=== PATIENT | male | born 1950 | race Caucasian/White ===

== ENCOUNTER 2017-09-07 14:06 | Emergency (ER) | payer BC, OTHER ==
--- NOTE | 2017-09-07 14:44 | EDM.PDOC ---
ED HPI GENERAL MEDICAL PROBLEM - General Chief Complaint: Lower Extremity Injury/Pain Stated Complaint: FELL OFF FIRETRUCK Time Seen by Provider: 09/07/17 14:30 Source of Information: Reports: Patient, Family History Limitations: Reports: No Limitations - History of Present Illness INITIAL COMMENTS - FREE TEXT/NARRATIVE: 67-year-old male fell about 5 feet off of a truck onto his left side onto concrete. This happened about 3 hours ago, he has pain in his left lateral hip with swelling developing, some pain in his left wrist and a small amount of soreness in his chest. No shortness of breath, no head injury, neck pain, abdominal pain. Onset: Sudden Duration: Hour(s): (3 hours ago) Location: Reports: Upper Extremity, Left, Lower Extremity, Left Severity: Moderate Associated Symptoms: Reports: No Other Symptoms Left Hip Pain Score (Numeric/FACES): 7 - Related Data Allergies Allergy/AdvReac Type Severity Reaction Status Date / Time ibuprofen [From Advil] Allergy Hives Verified 09/07/17 15:08 ED ROS GENERAL - Review of Systems Review Of Systems: See Below Constitutional: Denies: Fever, Chills Respiratory: Reports: Pleuritic Chest Pain. Denies: Shortness of Breath GI/Abdominal: Denies: Abdominal Pain, Nausea, Vomiting Musculoskeletal: Reports: Arm Pain, Leg Pain Skin: Denies: Bruising Neurological: Denies: Headache Psychiatric: Reports: No Symptoms ED EXAM, GENERAL - Physical Exam Exam: See Below Exam Limited By: No Limitations General Appearance: Alert, No Apparent Distress (Walks very gingerly but relatively pain-free when lying still) Eye Exam: Bilateral Eye: EOMI Head: Atraumatic Neck: Normal Inspection Respiratory/Chest: No Respiratory Distress, Lungs Clear, Other (Patient has a small amount of discomfort when palpating the anterior chest, no significant tenderness or crepitus) Cardiovascular: Regular Rate, Rhythm GI/Abdominal: Soft, Non-Tender Extremities: Other (Tenderness to the medial aspect of the left wrist with a small amount of swelling, no deformity. Patient has significant swelling and tightness developing on the posterior left buttock at the lateral left hip, very tender to palpation) Course - Vital Signs Last Recorded V/S: Last Vital Signs Temp 101.7 F H 09/07/17 17:25 Pulse 81 09/07/17 17:25 Resp 16 12/31/17 17:25 BP 142/69 H 09/07/17 17:25 Pulse Ox 96 09/07/17 17:25 - Orders/Labs/Meds Orders: Active Orders 24 hr Category Date Time Status Pelvis wo Cont [CT] Stat Exams 09/07/17 14:40 Taken Wrist Comp Min 3V Lt [CR] Stat Exams 09/07/17 14:40 Taken - Re-Assessments/Exams Free Text/Narrative Re-Assessment/Exam: 09/07/17 14:44 An x-ray of the left wrist was ordered as well as a CT of the pelvis without contrast. 09/07/17 16:43 Left wrist x-ray was negative, CT of the pelvis showed the soft tissue injury but no fracture. Patient was supplied with 20 Vicodin for extra pain control and encouraged to increase activity as tolerated. Departure - Departure Time of Disposition: 17:34 Disposition: Home, Self-Care 01 Condition: Fair Clinical Impression: Traumatic hematoma of buttock Qualifiers: Encounter type: initial encounter Qualified Code(s): S30.0XXA - Contusion of lower back and pelvis, initial encounter Contusion of wrist, left Qualifiers: Encounter type: initial encounter Qualified Code(s): S60.212A - Contusion of left wrist, initial encounter - Discharge Information Instructions: Hematoma, [id number] Referrals: PCP,None [Primary Care Provider] - Forms: ED Department Discharge Care Plan Goals: Ice to swollen and sore areas for the next 48 hours would be helpful. A regular dose of anti-inflammatory such as ibuprofen or naproxen would also be helpful, along with stronger pain medications as prescribed if needed. Increase activity as tolerated and recheck next week if concerns of not healing satisfactorily. - My Orders Last 24 Hours: My Active Orders 09/07/17 14:40 Pelvis wo Cont [CT] Stat Wrist Comp Min 3V Lt [CR] Stat - Assessment/Plan Last 24 Hours: My Active Orders 09/07/17 14:40 Pelvis wo Cont [CT] Stat Wrist Comp Min 3V Lt [CR] Stat
--- NOTE | 2017-09-09 09:18 | CR ---
Wrist Comp Min 3V Lt INDICATION: fall, injury COMPARISON: 04/16/2013 FINDINGS: 3 views. No fracture, dislocation, or other acute bony abnormality. Old dorsal triquetra l chip fracture. Degenerative change, slightly progressed.
== END 2017-09-07 17:35 | disposition home or self-care (01) ==
LOC: JP.ED 14:06
DX: S30.0XXA Contusion of lower back and pelvis, initial encounter (principal); S60.212A Contusion of left wrist, initial encounter; Z88.6 Allergy status to analgesic agent; W17.89XA Other fall from one level to another, initial encounter
CPT/HCPCS: 72192; 73110-26-LT; 73110-LT; 99284-25

== ENCOUNTER 2019-06-23 02:28 | Emergency (ER) | payer MEDICARE, BC ==
[2019-06-23] MEDS ORDERED: Tranexamic Acid 1,000 MG in Sodium Chloride 0.9% 50 ML IV ONE (03:21)
[2019-06-23] MEDS: Gelatin Sponge,Absorbable 12-7 mm Sponge TOP ONE (03:56)
--- NOTE | 2019-06-23 04:18 | EDM.PDOC ---
ED HPI GENERAL MEDICAL PROBLEM - General Chief Complaint: ENT Problem Stated Complaint: TOOTH BLEED Time Seen by Provider: 06/23/19 02:50 Source of Information: Reports: Patient History Limitations: Reports: No Limitations - History of Present Illness INITIAL COMMENTS - FREE TEXT/NARRATIVE: This man had a dental extraction 2 days ago, a left upper molar. It has been oozing ever since. He was told to put a tea bag on it but it hasn't helped. He is on coumadin for afib. a recent INR was 2.9. - Related Data Allergies Allergy/AdvReac Type Severity Reaction Status Date / Time glipizide Allergy Weakness Verified 06/23/19 02:31 ibuprofen [From Advil] Allergy Hives Verified 07/03/18 23:31 Home Meds: Home Meds Acetaminophen [Acetaminophen Extra Strength] 1,000 mg PO BEDTIME PRN 07/03/18 [ History] Chlorthalidone 1 tab PO DAILY 07/03/18 [History] Chromium Picolinate 400 mcg PO BEDTIME 07/03/18 [History] Garlic 500 mg PO BID 07/03/18 [History] Gluc 2KCl/Chondr/Manpreet Hy/Hy Ac [Glucosamine & Chondroitin Cap] 1 each PO BID [History] Lisinopril 1 tab PO DAILY 07/03/18 [History] Metoprolol Succinate [Toprol XL 50mg] 50 mg PO BEDTIME 07/03/18 [History] Multivitamin [Men's Multi-Vitamin] 1 each PO DAILY 07/03/18 [History] [place]-3 Fatty Acids/Fish Oil [Fish Oil 1,000 mg Softgel] 1 each PO BID 07/03/18 [History] atorvaSTATin [Lipitor] 20 mg PO BEDTIME 07/03/18 [History] Aspirin [Adult Low Dose Aspirin EC] 81 mg PO DAILY 06/23/19 [History] Warfarin Sodium 5 mg PO ASDIRECTED 06/23/19 [History] Warfarin Sodium 7.5 mg PO ASDIRECTED 06/23/19 [History] glyBURIDE [Micronase] 2.5 mg PO DAILY 06/23/19 [History] metFORMIN [Glucophage XR] 1,000 mg PO DAILY 06/23/19 [History] Past Medical History HEENT History: Reports: Impaired Vision Cardiovascular History: Reports: Afib, CAD, High Cholesterol, Hypertension, DC, Stents Other Genitourinary History: VASECTOMY Musculoskeletal History: Reports: Fracture Endocrine/Metabolic History: Reports: Diabetes, Type II - Infectious Disease History Infectious Disease History: Reports: Chicken Pox, Measles, Mumps - Past Surgical History Cardiovascular Surgical History: Reports: Coronary Artery Stent Male Surgical History: Reports: Vasectomy Other Musculoskeletal Surgeries/Procedures:: R ANKLE REPAIR with plate and pins Social & Family History - Tobacco Use Smoking Status *Q: Never Smoker Second Hand Smoke Exposure: No - Caffeine Use Caffeine Use: Reports: Coffee - Alcohol Use Days Per Week of Alcohol Use: 1 Number of Drinks Per Day: 1 Total Drinks Per Week: 1 - Recreational Drug Use Recreational Drug Use: No ED ROS ENT - Review of Systems Review Of Systems: ROS reveals no pertinent complaints other than HPI. ED EXAM, ENT - Physical Exam Exam: See Below Exam Limited By: No Limitations General Appearance: Alert, WD/WN, Mild Distress (spitting out small amounts of bloody saliva frequently.) Mouth/Throat: Other (recent extraction of left upper molar. Actively oozing blood.) Course - Vital Signs Last Recorded V/S: Last Vital Signs Temp 36.3 C 06/23/19 02:43 Pulse 82 06/23/19 02:43 Resp 16 06/23/19 02:43 BP 164/79 H 06/23/19 02:43 Pulse Ox 95 06/23/19 02:43 - Orders/Labs/Meds Meds: Medications Discontinued Medications Generic Name Dose Route Start Last Admin Trade Name Freq PRN Reason Stop Dose Admin Gelatin 1 each 06/23/19 03:34 06/23/19 03:56 Gelfoam 12-7 Mm TOP 06/23/19 03:35 Not Given ONETIME ONE Tranexamic Acid 500 mg 06/23/19 03:17 06/23/19 03:54 Cyklokapron TOP 06/23/19 03:18 500 mg ONETIME ONE Administration Tranexamic Acid 1,000 mg 06/23/19 03:29 Cyklokapron TOP 06/23/19 03:30 ONETIME ONE - Re-Assessments/Exams Free Text/Narrative Re-Assessment/Exam: 06/23/19 04:15 Procedure: dental packing The mouth was rinsed vigorously with water. remaining clot removed with forceps. Socket packed with 2x2 cm absobable cellulose soaked in 5% TXA followed by spongeball also with TXA. Departure - Departure Time of Disposition: 04:17 Disposition: Home, Self-Care 01 Condition: Fair Clinical Impression: Surgical wound hemorrhage after dental procedure - Discharge Information Referrals: PCP,None [Primary Care Provider] - Additional Instructions: When to gauze ball is blood soaked and you begin to spit up more blood then change the gauze ball. Wet the ball first with the Tranexamic acid solution. Repeat as needed. If this does not stop the bleeding then contact your dentist. Return to the ER if needed.
== END 2019-06-23 04:25 | disposition home or self-care (01) ==
LOC: JP.ED 02:28
DX: K91.840 Postprocedural hemorrhage of a digestive system organ or structure following a digestive system procedure (principal); I48.91 Unspecified atrial fibrillation; E78.00 Pure hypercholesterolemia, unspecified; I10 Essential (primary) hypertension; I25.2 Old myocardial infarction; E11.9 Type 2 diabetes mellitus without complications; Z79.01 Long term (current) use of anticoagulants; Z79.899 Other long term (current) drug therapy; Z79.82 Long term (current) use of aspirin; Z79.84 Long term (current) use of oral hypoglycemic drugs
CPT/HCPCS: 99283

== ENCOUNTER 2020-08-01 23:59 | Emergency (ER) | payer MEDICARE, BC ==
--- NOTE | 2020-08-02 01:03 | EDM.PDOC ---
ED HPI GENERAL MEDICAL PROBLEM - General Chief Complaint: Chest Pain Stated Complaint: CHEST PAINS Time Seen by Provider: 08/02/20 00:40 Source of Information: Reports: Patient, Family History Limitations: Reports: No Limitations - History of Present Illness INITIAL COMMENTS - FREE TEXT/NARRATIVE: 70-year-old male, chronically anticoagulated due to persistent atrial fibrillation lay down to go to bed tonight and developed a left-sided chest pain that came on fairly abruptly sharp. He had a hard time getting comfortable so checked his blood pressure and it was high so he came in to be checked. In route to the hospital it went away. On arrival he was pain-free, while he was having pain he did not have shortness of breath, diaphoresis, radiation of the pain into the shoulder neck or teeth, nausea or vomiting. There was some pain with movement. He is usually very active cutting wood etc. and does not have chest pain, today he did not have much activity. Onset: Sudden Duration: Hour(s): (1 hour and 45 minutes ago) Location: Reports: Chest (Left anterior chest) Quality: Reports: Sharp, Stabbing Associated Symptoms: Reports: No Other Symptoms denies Pain Score (Numeric/FACES): 0 - Related Data Allergies Allergy/AdvReac Type Severity Reaction Status Date / Time glipizide Allergy Weakness Verified 08/02/20 00:18 ibuprofen [From Advil] Allergy Hives Verified 08/02/20 00:18 Home Meds: Home Meds Acetaminophen [Acetaminophen Extra Strength] 1,000 mg PO BEDTIME PRN 07/03/18 [History] Chlorthalidone 1 tab PO DAILY 07/03/18 [History] Chromium Picolinate 400 mcg PO BEDTIME 07/03/18 [History] Garlic 500 mg PO DAILY 07/03/18 [History] Glucosam/Chondr/Collagn/Hyalur [Glucosamine & Chondroitin Cap] 1 each PO BID 07/03/18 [History] Lisinopril 1 tab PO DAILY 07/03/18 [History] Metoprolol Succinate [Toprol XL 50mg] 50 mg PO BEDTIME 07/03/18 [History] Multivitamin [Men's Multi-Vitamin] 1 each PO DAILY 07/03/18 [History] [place]-3 Fatty Acids/Fish Oil [Fish Oil 1,000 mg Softgel] 1 each PO DAILY 07/03/18 [History] atorvaSTATin [Lipitor] 20 mg PO BEDTIME 07/03/18 [History] Warfarin Sodium 5 mg PO ASDIRECTED 06/23/19 [History] glyBURIDE [Micronase] 2.5 mg PO DAILY 06/23/19 [History] metFORMIN [Glucophage XR] 1,000 mg PO DAILY 06/23/19 [History] Past Medical History HEENT History: Reports: Impaired Vision Cardiovascular History: Reports: Afib, CAD, High Cholesterol, Hypertension, MA, Stents Other Genitourinary History: VASECTOMY Musculoskeletal History: Reports: Arthritis, Fracture Endocrine/Metabolic History: Reports: Diabetes, Type II - Infectious Disease History Infectious Disease History: Reports: Chicken Pox, Measles, Mumps - Past Surgical History Cardiovascular Surgical History: Reports: Coronary Artery Stent Male Surgical History: Reports: Vasectomy Other Musculoskeletal Surgeries/Procedures:: R ANKLE REPAIR with plate and pins Social & Family History - Tobacco Use Tobacco Use Status *Q: Never Tobacco User Second Hand Smoke Exposure: No - Caffeine Use Caffeine Use: Reports: Coffee, Soda - Alcohol Use Days Per Week of Alcohol Use: 0 - Recreational Drug Use Recreational Drug Use: No ED ROS GENERAL - Review of Systems Review Of Systems: See Below Constitutional: Denies: Fever, Chills, Malaise HEENT: Reports: No Symptoms Respiratory: Reports: Pleuritic Chest Pain. Denies: Shortness of Breath Cardiovascular: Reports: Chest Pain. Denies: Palpitations Endocrine: Denies: Fatigue GI/Abdominal: Denies: Nausea, Vomiting Musculoskeletal: Denies: Neck Pain, Shoulder Pain, Arm Pain, Back Pain Skin: Reports: No Symptoms. Denies: Diaphoresis Neurological: Reports: No Symptoms Psychiatric: Reports: No Symptoms ED EXAM, GENERAL - Physical Exam Exam: See Below Exam Limited By: No Limitations General Appearance: Alert, No Apparent Distress Eye Exam: Bilateral Eye: Normal Inspection Head: Atraumatic Neck: Supple, Non-Tender Respiratory/Chest: Lungs Clear Cardiovascular: Systolic Murmur (Faint systolic murmur is present), Irregularly Irregular. No: Tachycardia GI/Abdominal: Soft, Non-Tender Extremities: Normal Inspection. No: Pedal Edema Neurological: Alert, Oriented Psychiatric: Normal Affect, Normal Mood Skin Exam: Warm, Dry #1 Interpretation EKG Date: 08/02/20 Rhythm: A-Fib Rate (Beats/Min): 68 ST-T: Normal Course - Vital Signs Last Recorded V/S: Last Vital Signs Temp 98 F 08/02/20 01:11 Pulse 86 08/02/20 01:11 Resp 16 08/02/20 01:11 BP 126/84 08/02/20 01:11 Pulse Ox 98 08/02/20 01:11 - Re-Assessments/Exams Free Text/Narrative Re-Assessment/Exam: 08/02/20 01:33 EKG showed atrial fibrillation without ST elevation or depression, good rate control. Explained to the patient that I would have to draw troponin in 2 hours to rule out an MA, and he was not going to stay that long for a test. I tried to convince him that that would be the best and most safest way to evaluate his chest pain but he insisted on coming back in the morning for a test. I do think this is atypical and likely not an MA, but if his pain returns tonight he will return when that happens. Otherwise he will return at 9 AM tomorrow morning for a troponin. Departure - Departure Time of Disposition: 01:15 Disposition: Home, Self-Care 01 Clinical Impression: Atypical chest pain - Discharge Information Instructions: Nonspecific Chest Pain, Adult, [id number] Referrals: Miguel Brown NP [Primary Care Provider] - Forms: ED Department Discharge Care Plan Goals: Return tomorrow morning for another blood test, return sooner if chest pain recurs especially if persistent or accompanied by shortness of breath or other symptoms. Sepsis Event Note (ED) - Evaluation Sepsis Screening Result: No Definite Risk - Focused Exam Vital Signs: Vital Signs Temp Pulse Resp BP Pulse Ox 08/02/20 01:11 98 F 86 16 126/84 98 08/02/20 00:16 98 F 75 16 152/97 H 100
== END 2020-08-02 01:15 | disposition home or self-care (01) ==
LOC: JP.ED 23:59
DX: R07.89 Other chest pain (principal); I10 Essential (primary) hypertension; E78.00 Pure hypercholesterolemia, unspecified; I25.2 Old myocardial infarction; E11.9 Type 2 diabetes mellitus without complications; I48.91 Unspecified atrial fibrillation; I25.10 Atherosclerotic heart disease of native coronary artery without angina pectoris; Z95.5 Presence of coronary angioplasty implant and graft; Z88.6 Allergy status to analgesic agent; Z88.8 Allergy status to other drugs, medicaments and biological substances
CPT/HCPCS: 99284-25

== ENCOUNTER 2020-08-22 08:32 | Day surgery (SDC) | payer MEDICARE, BC ==
[~2020-08-22 08:32] MED LIST: Dextrose 5%-Lactated Ringers 1,000 ML IV SCH
[2020-08-22] MEDS ORDERED: Propofol 200 MG/20 ML SDV ONE (10:05)
[2020-08-22] MEDS ORDERED: fentaNYL 100 MCG/2 ML SDV ONE (10:05)
[2020-08-22] MEDS ORDERED: Midazolam 1 MG/ML 2 ML SDV ONE (10:05)
--- NOTE | 2020-09-02 11:43 | OR ---
DATE OF PROCEDURE: 08/22/2020 SURGEON: Almas Aerllano MD PREOPERATIVE DIAGNOSIS: Positive Cologuard examination. POSTOPERATIVE DIAGNOSIS: Colonoscopy showing a single small rectal polyp. OPERATIVE PROCEDURE: Flexible colonoscopy with polypectomy. ANESTHESIA: IV sedation. INDICATION FOR PROCEDURE: This is a 70-year-old male presenting with a positive Cologuard examination. He is to undergo a flexible colonoscopy with biopsies and/or polypectomy as indicated. Potential risks of the procedure including bleeding, infection, and perforation of the bowel and such were reviewed, and the patient wishes to proceed. DETAILS OF PROCEDURE: The patient was taken to the operating room and placed in the left lateral decubitus position. IV sedation was administered after which the initial digital rectal exam was performed and was unremarkable. The colonoscope was then passed into the rectum with retroflexion revealing uncomplicated hemorrhoidal columns. The scope was eventually passed to the cecum. There were no areas of diverticular disease, no areas of colitis. A single small polyp was noted in the rectum, roughly 10 cm from the dentate line. This was encircled with the cautery snare and excised and sent for histologic evaluation. Minimal bleeding from the polypectomy site was seen and the procedure then concluded. Assuming the polyp was an adenomatous polyp, the next followup colonoscopy should be in 3 years. Almas Arellano MD /[id number]
== END 2020-08-22 12:41 | disposition home or self-care (01) ==
LOC: JP.SDS 08:32
PROVIDERS: ATTEND Surgery
DX: D12.8 Benign neoplasm of rectum (principal); K64.9 Unspecified hemorrhoids; I10 Essential (primary) hypertension; E78.5 Hyperlipidemia, unspecified; I25.10 Atherosclerotic heart disease of native coronary artery without angina pectoris; I48.91 Unspecified atrial fibrillation; E11.9 Type 2 diabetes mellitus without complications; Z88.8 Allergy status to other drugs, medicaments and biological substances
CPT/HCPCS: 45380; 88305; J2250; J2704; J3010; J7121

== ENCOUNTER 2021-09-29 13:51 | Emergency (ER) | payer MEDICARE, BC | END 2021-09-29 14:55 | disposition home or self-care (01) | LOC: JP.ED 13:51 | DX: L08.9 Local infection of the skin and subcutaneous tissue, unspecified (principal); I48.91 Unspecified atrial fibrillation; I25.10 Atherosclerotic heart disease of native coronary artery without angina pectoris; E78.00 Pure hypercholesterolemia, unspecified; I10 Essential (primary) hypertension; I25.2 Old myocardial infarction; E11.9 Type 2 diabetes mellitus without complications; Z95.5 Presence of coronary angioplasty implant and graft; Z88.8 Allergy status to other drugs, medicaments and biological substances; Z79.899 Other long term (current) drug therapy; Z79.01 Long term (current) use of anticoagulants | CPT/HCPCS: 99282 ==

== ENCOUNTER → 2023-08-11 | Day surgery (SDC) | payer MEDICARE, BC ==
[~2023-08-11] MED LIST changes: -Dextrose 5%-Lactated Ringers 1,000 ML IV SCH; +Propofol 200 MG/20 ML SDV ONE; +Sodium Chloride 0.9% 1,000 ML IV SCH; +fentaNYL 50 MCG/ML SDV ONE
[2023-08-11 08:18] LABS: PROTHROMBIN TIME 10.6 sec (9.2-10.6)
== END ==
LOC: JP.SDS 07:23
PROVIDERS: ATTEND Surgery
DX: Z12.11 Encounter for screening for malignant neoplasm of colon (principal); D12.5 Benign neoplasm of sigmoid colon; I25.10 Atherosclerotic heart disease of native coronary artery without angina pectoris; I10 Essential (primary) hypertension; I48.91 Unspecified atrial fibrillation; E11.9 Type 2 diabetes mellitus without complications
CPT/HCPCS: 36415; 45380; 85610; 88305; J2704; J3010; J7030

== ENCOUNTER 2025-02-02 19:07 | Emergency (ER) | payer MEDICARE, BC | END 2025-02-02 20:10 | disposition home or self-care (01) | LOC: JP.ED 19:07 | DX: S70.362A Insect bite (nonvenomous), left thigh, initial encounter (principal); I10 Essential (primary) hypertension; I48.91 Unspecified atrial fibrillation; I25.10 Atherosclerotic heart disease of native coronary artery without angina pectoris; E78.00 Pure hypercholesterolemia, unspecified; E11.9 Type 2 diabetes mellitus without complications; M19.90 Unspecified osteoarthritis, unspecified site; Z88.8 Allergy status to other drugs, medicaments and biological substances; Z88.6 Allergy status to analgesic agent; Z79.899 Other long term (current) drug therapy; Z79.01 Long term (current) use of anticoagulants; Z79.02 Long term (current) use of antithrombotics/antiplatelets; Z86.16 Personal history of COVID-19; W57.XXXA Bitten or stung by nonvenomous insect and other nonvenomous arthropods, initial encounter | CPT/HCPCS: 99281; 99283 ==